=== PATIENT | male | born 1985 | race Caucasian/White ===

== ENCOUNTER 2017-07-11 14:10 | Emergency (ER) | payer OTHER ==
[~2017-07-11] VITALS: Ht 180.3 cm; Wt 86.2 kg
[2017-07-11 14:10] VITALS: BP_SYST 148
[2017-07-11] MEDS ORDERED: DIPHENHYDRAMINE HCL 25 MG CAPSULE PO ONE (14:30)
[2017-07-11] MEDS ORDERED: FAMOTIDINE 20 MG TABLET PO ONE (14:30)
[2017-07-11] MEDS ORDERED: methylPREDNISolone SOD SUCC/PF 62.5 MG/ML VIAL IM ONE (14:30)
[2017-07-11] MEDS ORDERED: NACL 0.9% 1,000 ML IV ONE (14:45)
[2017-07-11] MEDS ORDERED: methylPREDNISolone SOD SUCC/PF 62.5 MG/ML VIAL IVP ONE (14:45)
[2017-07-11 16:30] VITALS: BP_SYST 126
== END 2017-07-11 16:30 | disposition home or self-care (01) ==
LOC: SED 14:10
DX: L50.9 Urticaria, unspecified (principal); T50.995A Adverse effect of other drugs, medicaments and biological substances, initial encounter; Y92.89 Other specified places as the place of occurrence of the external cause
CPT/HCPCS: 96374; 99284; J2930; J7030; Q0163